=== PATIENT | male | born 1980 | race Caucasian/White ===

== ENCOUNTER → 2016-03-09 | Outpatient (CLI) | payer OTHER ==
--- NOTE | 2016-03-10 09:13 | MR ---
EXAMINATION TYPE: MR lumbar spine wo con DATE OF EXAM: 03/09/2016 2:25 PM COMPARISON: 09/29/2012 HISTORY: Prolapsed lumbar intervertebral disc, Disc displacement, Pain TECHNIQUE: Multiplanar, multisequence images of the lumbar spine were acquired. L1-L2: Normal disc appearance without desiccation. No herniation, protrusion or disc bulging. No ca nal stenosis is present. Foramina are patent bilaterally. L2-L3: Normal disc appearance without desiccation. No herniation, protrusion or disc bulging. No ca nal stenosis is present. Foramina are patent bilaterally. L3-L4: Loss of disc signal and mild loss of disc space. Neural foramina are patent. Mild central disc bulging and mild hypertrophic change of the facets. No canal stenosis. L4-L5: Circumferential disc bulging and hypertrophic change of the facets with mild bilateral foramin al encroachment. Moderate degenerative disc disease with discogenic marrow changes. . L5-S1: Discogenic marrow changes with moderate degenerative disc disease. Suggestion of annular tear and left paracentral disc bulging but no canal stenosis. Mild bilateral foraminal encroachment Lumbar segments are intact. No paraspinal masses are identified. Conus medullaris has a normal appe arance. IMPRESSION: Stable left paracentral disc bulging or small protrusion L5-S1. Mild left-sided foraminal encroachmen t. Stable disc bulging L3-L4 and L4-L5. Multilevel degenerative disc disease and facet arthropathy.
== END | disposition home or self-care (01) ==
LOC: RADMRIMAIN 13:36
PROVIDERS: ATTEND Family Medicine
DX: M51.27 Other intervertebral disc displacement, lumbosacral region (principal); M51.36 Other intervertebral disc degeneration, lumbar region; M46.96 Unspecified inflammatory spondylopathy, lumbar region
CPT/HCPCS: 72148

== ENCOUNTER → 2018-04-12 | Outpatient (CLI) | payer OTHER ==
--- NOTE | 2018-04-12 11:33 | US ---
EXAMINATION TYPE: US thyroid st tissue head/neck DATE OF EXAM: 04/12/2018 COMPARISON: US 2017 CLINICAL HISTORY: E04.1 Thyroid Nodule. Follow up thyroid nodules GLAND SIZE: Right Lobe: 5.0 x 1.7 x 1.7 cm Overall Parenchyma: heterogenous Left Lobe: 4.9 x 1.5 x 1.7 cm Overall Parenchyma: heterogeneous Isthmus Thickness: 0.4 cm NODULES RIGHT: # of nodules measured on right: 0 LEFT: # of nodules measured on left: 2 1. 0.8 X 0.7 x 0.8 cm isoechoic solid nodule at the lower pole with poorly defined margins. This no dule is wider than tall and shows intranodular vascularity. Prior size: 0.8 x 0.7 x 0.9 cm 2. 0.3 X 0.2 x 0.3 cm hypoechoic cystic nodule at the lower pole with well-defined margins. This nod ule is wider than tall and shows no intranodular vascularity. Prior size: 0.3 x 0.2 x 0.3 cm ISTHMUS: # of nodules measured in the isthmus: 0 Bilateral neck scanned, no evidence of lymphadenopathy. IMPRESSION: Mildly heterogeneous gland with left lobe nodules described above.
== END ==
LOC: RADUSWWP 10:48
PROVIDERS: ATTEND Family Medicine
DX: E04.2 Nontoxic multinodular goiter (principal)
CPT/HCPCS: 76536

== ENCOUNTER → 2020-05-28 | Outpatient (CLI) | payer OTHER ==
--- NOTE | 2020-05-28 21:44 | MR ---
EXAMINATION TYPE: MR lspine/sacrum wo con DATE OF EXAM: 05/28/2020 COMPARISON: 09/29/2012 HISTORY: LBP, LLE radiculopathy, prior surgery 2017 CONTRAST: 0 mL intravenous Gadavist. TECHNIQUE: Multiplanar, multisequence images of the lumbar spine were acquired. FINDINGS: L5-S1: There is a left paracentral moderate-sized disc herniation into the epidural space. This has c ontact with the distal thecal sac. Laminectomy has been performed. This has contact with the exiting S1 nerve root on the left. This may be recurrent and extending superior to the L5 vertebral level. N o spinal canal stenosis. No foraminal stenosis. L4-L5: Disc bulge is anterior thecal sac flattening. No AP spinal canal stenosis is present No forami nal stenosis. . L3-L4: No significant disc bulge or disc herniation. No spinal canal stenosis. No foraminal stenosi s. Disc desiccation is present. L2-L3: No significant disc bulge or disc herniation. No spinal canal stenosis. No foraminal stenosi s. L1-L2: No significant disc bulge or disc herniation. No spinal canal stenosis. No foraminal stenosi s. T12-L1: No significant disc bulge or disc herniation. No spinal canal stenosis. No foraminal stenos is. Sacrum: Sagittal views of the sacrum are obtained. The sacral canal is patent. Coccyx as visualized a ppears normal. Presacral space is unremarkable. No acute fractures are evident. Foramen appear patent . Sacroiliac joints are normal. IMPRESSION: 1. Appears to be recurrent left paracentral disc herniation at L5-S1 at the location of a previous di sc herniation. This appears similar to prior study in size, but on this examination has extended supe rior to the L5 level which is a change from comparison. This has contact with the left S1 nerve root. Correlate with radicular symptoms. 2. Mild disc bulging L4-5 with anterior thecal sac flattening. Some interval mild loss of disc height is evident. 3. Disc desiccation L3-4 through L5-S1. 4. Sacrum as visualized is unremarkable. There
== END | disposition home or self-care (01) ==
LOC: RADMRIMAIN 17:59
PROVIDERS: ATTEND Nurse Practitioner Adult Health
DX: M51.17 Intervertebral disc disorders with radiculopathy, lumbosacral region (principal); M51.16 Intervertebral disc disorders with radiculopathy, lumbar region; Z98.890 Other specified postprocedural states
CPT/HCPCS: 72148; 72195

== ENCOUNTER → 2022-03-22 | Outpatient (CLI) | payer OTHER ==
[2022-03-22 08:54] VITALS: BP 150/91; PULSE 68; RESP 18; TEMP 97.7
--- NOTE | 2022-03-22 15:21 | P.PAINPG ---
PQRS Measure Charge Sheet Comment: HISTORY OF PRESENT ILLNESS: 41 yr old male as a referral from [facility] presents today w severe and chronic LBP secondary to post laminectomy syndrome, disc bulges and facet arthropathy without myelopathy for evaluation. Pt states pain level is at 8 /10 in intensity, constant, localized in the L lower lumbar spine, burning, achy in character w shooting pain towards the LLE. Pain is provoked by bending, lifting. Pain is alleviated by chiropractic treatments monthly, heat, ice, meds (Celebrex, Ibu 800mg), topicals, sitting, repositioning and rest. PMH: No Reported History PSH: Nephrolithiasis SH: Daily tobacco use, Rare ETOH use, No illicit drug use. 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 FH: Non contributory All: See list Meds: See list REVIEW OF ORGAN SYSTEMS: CONSTITUTIONAL: No fevers or chills. No recent weight loss. NEUROLOGICAL: + numbness and tingling along the distal extremities. No seizure disorders or headaches. MUSCULOSKELETAL: + pain PSYCHIATRIC: Denies current depression or suicidal thought s. Physical Examinations : Constitutional : Cooperative , not in acute distress . Neurologic : Cranial nerve II to XII intact. No focal neurological deficits. Psychiatric : alert & oriented x 3. Matching mood & appropriate affect. Judgment & insight intact. Musculoskeletal : Cervical Spine Motor strength in the deltoid and biceps: Normal right side. Normal Left side Motor strength biceps and the wrist extensors: Normal right side . Normal left side Motor strength in the triceps muscle: Normal right side. Normal left side Deep tendon reflexes: Normal at the biceps. Normal at Brachioradialis. Normal at triceps Vertebral body tenderness to deep palpation over Cervical facet loading test: positive bilaterally Spurling test: positive bilaterally Neck distraction test: positive bilaterally Abdoulaye sign: positive bilaterally Lumbar spine Motor strength lower extremities ,thigh and legs 5/5 Right side , 5/5 Left side Deep tendon reflexes : Normal Knee Jerk. Normal Ankle Jerk Vertebral body tenderness over L4 Lumbar facet Loading Test: positive Right / positive Left Range of motion of the lumbar spine Flexion 30 degrees, extension 10 degrees Straight Leg Raise test: Left/ Right positive at degree Steven test: positive right / positive left. Severe tenderness over the Sacroiliac joint on the Right / Left sides Gaenslen test: positive bilaterally Seated flexion test: positive bilaterally. Sacral spine : Severe tenderness over the Sacroiliac joint: right side / left side Range of motion: Flexion of the lumbar spine <60 degrees Range of motion: Extension of the lumbar spine <20 degrees Gaenslen's Test positive Horace's Test positive Steven test: positive right side / left side Thigh Thrust Test Sacral Thrust Test Imaging: MRI without contrast of the lumbar spine and sacrum 05/28/20 reviewed Assessment/ Plan : Lumbar post laminectomy syndrome Recommendation of L paramedian L4-L5 SALLIE. May need a series of injections, up to 3 within a 6 mo period, for optimal pain relief. Risks, benefits of procedure discussed and patient verbalized understanding. Admits to aspirin or anti- coagulant use or medical history of diabetes. Protocol for discontinuation/ continuation of medications annalee procedure discussed. All questions answered. I have spent greater than 30 minutes on patient care today. Dr Padgett was available by phone for the evaluation of this patient. The time was used to review the medical records including relevant urine studies and Prescription history (MAPs), review of the available imaging, evaluation and examination of the patient, coordination of care with the medical staff and if applicable referring physicians, as well as creation of the medical record PQRS Narrative: Smoking Status Current every day smoker Home Medications: Ambulatory Orders predniSONE [Deltasone] 40 mg PO DAILY 5 Days tab 10/17/15 Controlled Substance Measures - Controlled Substance Measures Is patient prescribed a controlled substance at discharge?: No
== END ==
LOC: PNWHC3 07:58
PROVIDERS: ATTEND Specialist
DX: M96.1 Postlaminectomy syndrome, not elsewhere classified (principal); Z88.2 Allergy status to sulfonamides; Z91.030 Bee allergy status; F17.200 Nicotine dependence, unspecified, uncomplicated
CPT/HCPCS: 99211

== ENCOUNTER → 2022-11-25 | Outpatient (CLI) | payer OTHER ==
[2022-11-25 09:14] VITALS: BP 157/76; PULSE 60; RESP 16; TEMP 97.8
--- NOTE | 2022-11-25 12:32 | P.PAINPG ---
PQRS Measure Charge Sheet Comment: HISTORY OF PRESENT ILLNESS: 41 yr old male presents today w severe and chronic LBP secondary to post laminectomy syndrome, disc bulges and facet arthropathy without myelopathy for evaluation s/p SALLIE L4-L5. Pt states she experienced 80 % pain relief x 7-8 mo s/p procedure. Pt states pain level is at 7 /10 in intensity, constant, localized in the L lower lumbar spine, burning, achy in character w shooting pain towards the LLE. Pain is provoked by bending, lifting. Pain is alleviated by chiropractic treatments monthly in May 2022, massage therapy semi weekly from his / [place] at home x 8 mo till present, heat, ice, meds (Celebrex, Ibu 800mg), topicals, sitting, repositioning and rest. He got no relief w PT 8 yrs ago. Oswestry axial pain score of 26. Interventional procedures include SALLIE L4-L5 (Apr 2022) Medications include Celebrex, Ibu REVIEW OF ORGAN SYSTEMS: CONSTITUTIONAL: No fevers or chills. No recent weight loss. NEUROLOGICAL: + numbness and tingling along the distal extremities. No seizure disorders or headaches. MUSCULOSKELETAL: + pain PSYCHIATRIC: Denies current depression or suicidal thoughts. Physical Examinations : Constitutional : Cooperative , not in acute distress . Neurologic : Cranial nerve II to XII intact. No focal neurological deficits. Psychiatric : alert & oriented x 3. Matching mood & appropriate affect. Judgment & insight intact. Musculoskeletal : Cervical Spine Motor strength in the deltoid and biceps: Normal right side. Normal Left side Motor strength biceps and the wrist extensors: Normal right side . Normal left side Motor strength in the triceps muscle: Normal right side. Normal left side Deep tendon reflexes: Normal at the biceps. Normal at Brachioradialis. Normal at triceps Vertebral body tenderness to deep palpation over Cervical facet loading test: positive bilaterally Spurling test: positive bilaterally Neck distraction test: positive bilaterally Abdoulaye sign: positive bilaterally Lumbar spine Motor strength lower extremities ,thigh and legs 5/5 Right side , 5/5 Left side Deep tendon reflexes : Normal Knee Jerk. Normal Ankle Jerk Vertebral body tenderness over L4 Lumbar facet Loading Test: positive Right / positive Left Range of motion of the lumbar spine Flexion 30 degrees, extension 10 degrees Straight Leg Raise test: Left/ Right positive at 20 degrees Steven test: positive right / positive left. Severe tenderness over the Sacroiliac joint on the Right / Left sides Gaenslen test: positive bilaterally Seated flexion test: positive bilaterally. Sacral spine : Severe tenderness over the Sacroiliac joint: right side / left side Range of motion: Flexion of the lumbar spine <60 degrees Range of motion: Extension of the lumbar spine <20 degrees Gaenslen's Test positive Horace's Test positive Steven test: positive right side / left side Thigh Thrust Test Sacral Thrust Test Imaging: MRI without contrast of the lumbar spine and sacrum 05/28/20 reviewed Assessment/ Plan : Lumbar post laminectomy syndrome Recommendation of L paramedian SALLIE L4-L5 #2. May need a series of injections, up to 3 within a 6 mo period, for optimal pain relief. Risks, benefits of procedure discussed and patient verbalized understanding. Admits to aspirin or anti- coagulant use or medical history of diabetes. Protocol for discontinuation/ continuation of medications annalee procedure discussed. All questions answered. I have spent greater than 30 minutes on patient care today. Dr Padgett was available by phone for the evaluation of this patient. The time was used to review the medical records including relevant urine studies and Prescription history (MAPs), review of the available imaging, evaluation and examination of the patient, coordination of care with the medical staff and if applicable referring physicians, as well as creation of the medical record PQRS Narrative: Smoking Status Current every day smoker Hx Alcohol Use (MH) Yes: "FEW A WEEK" Home Medications: Ambulatory Orders Celecoxib [CeleBREX] 200 mg PO DAILY 04/19/22 Controlled Substance Measures - Controlled Substance Measures Is patient prescribed a controlled substance at discharge?: No
== END ==
LOC: PNWHC3 07:50
PROVIDERS: ATTEND Specialist
DX: M96.1 Postlaminectomy syndrome, not elsewhere classified (principal); F17.200 Nicotine dependence, unspecified, uncomplicated; Z88.2 Allergy status to sulfonamides; Z91.030 Bee allergy status
CPT/HCPCS: 99211

== ENCOUNTER 2022-12-09 12:35 | Day surgery (SDC) | payer OTHER ==
[~2022-12-09 12:35] MED LIST: LACTATED RINGERS 1,000 ML IV SCH
[2022-12-09 12:59] VITALS: RESP 18; TEMP 98.3
[2022-12-09] MEDS ORDERED: ROPIVACAINE 5MG/ML 20ML VIAL ONE (13:48)
[2022-12-09] MEDS ORDERED: IOPAMIDOL M200 10 ML VIAL ONE (13:48)
[2022-12-09] MEDS ORDERED: TRIAMCINOLONE ACETONIDE 40 MG/ML 1 ML VIAL ONE (13:48)
--- NOTE | 2022-12-09 14:05 | P.PCN ---
Date of Procedure: 12/09/22 Surgeon: Jonny Lee Pathology: none sent Condition: stable Disposition: PACU Description of Procedure: PREOPERATIVE DIAGNOSIS: 1-Lumbar postlaminectomy pain syndrome 2- Lumber Degenerative Disc Diseases. POSTOPERATIVE DIAGNOSIS: 1-Lumbar postlaminectomy pain syndrome 2-Lumbar Degenerative Disc Diseases PROCEDURE 1. Lumbar epidural steroid injection under fluoroscopic guidance at the L5-S1 l evel in the left paramedian approach. 2. Lumbar epidurogram. ANESTHESIA: Local only with 1% lidocaine EBL: Minimal PROCEDURE INDICATION: The patient with low back pain and radiculitis symptoms un responsive to conservative treatment. Fluoroscopy was used to optimize visualization of the needle placement and to maximize safety. PROCEDURE DESCRIPTION / TECHNIQUE: The patient was seen and identified in the preoperative area. Risks, benefits, complications including but not limited to infections ,bleeding ,allergic reaction to the medications ,nerve damage and not complete pain relief , and alternatives were discussed with the patient. The patient agreed to proceed with the procedure and signed the consent. IV was started, and vital signs were stable. Due to previous surgery at the L4 5 level I decided to do the procedure at the L5-S1 level. Patient was taken to the OR and time out was completed. The patient was placed in the prone position on procedure table and a pillow was placed under the abdomen to reduce lumbar lordosis. The lumbosacral area was prepped and draped in the usual sterile fashion with ChloraPrep.Patient was closely monitored during the procedure. Conscious sedation was used during the procedure to decrease patients anxiety. Vital signs were monitered during the entire procedure. Using anterior-posterior fluoroscopy, the L4-5 interlaminar space was identified and the skin over this site was marked and then infiltrated with 1% lidocaine subcutaneously. Subsequently, a 20-gauge Tuohy epidural needle was inserted and advanced toward the epidural space using the Loss of resistance to air technique and guided by AP and lateral fluoroscopy. The correct needle position in the epidural space was verified with the injection of 1 mL of the water soluble contrast dye Omnipaque 180 contrast and observing an excellent epidurogram with the epidural spread of the dye, after negative aspiration for blood and CSF and in the absence of paresthesias. Again after negative aspiration, a 8 ml mixture containing 80 mg of Kenalog and 5 ml of preservative free Normal Saline, and 2 ml of preservative free Ropivacaine 0.5% solution was injected and a washout of epidurogram was seen. Needle was withdrawn intact, skin was cleansed, and bandages were applied. patient tolerated procedure well and was transferred to PACU in stable condition.A copy of the needle placement picture was saved to the fluoroscopy machine. Due to previous surgery at the L4-5 level it would be preferable to do a caudal epidural steroid injection next time instead of LESI. COMPLICATIONS: None DISPOSITION / PLANS: The patient was placed in a supine position and transferred to the recovery area in a stable condition for observation. There was no evidence of lower extremity motor or sensory deficit after the procedure. Patient was discharged from the recovery room after meeting discharge criteria. Home discharge instructions were given to the patient by the staff. The patient was reexamined prior to discharge. The patient will schedule a follow up in the clinic in 2-4 weeks.
[2022-12-09 16:25] VITALS: BP 151/85; PULSE 63
--- NOTE | 2022-12-09 19:24 | FL ---
EXAMINATION TYPE: FL guided pain mgmt statistic DATE OF EXAM: 12/09/2022 FLUOROSCOPY Lumbar epidural steroid injection 9 sec Fluoro time 0.64581 mGycm2 DAP 2 views
== END 2022-12-09 16:10 | disposition home or self-care (01) ==
LOC: ORPAIN 12:35
PROVIDERS: ATTEND Anesthesiology
DX: M51.16 Intervertebral disc disorders with radiculopathy, lumbar region (principal); M96.1 Postlaminectomy syndrome, not elsewhere classified; Z88.2 Allergy status to sulfonamides
CPT/HCPCS: 62323; J3301; Q9966; J2795

== ENCOUNTER → 2023-04-07 | Outpatient (CLI) | payer OTHER ==
--- NOTE | 2023-04-07 14:26 | P.PAINPG ---
PQRS Measure Charge Sheet Comment: HISTORY OF PRESENT ILLNESS: A 42 yr old male presents today w severe and chronic LBP secondary to post laminectomy syndrome, disc bulges and facet arthropathy without myelopathy for evaluation s/p SALLIE L5-S1. Pt states he experienced 60 % pain relief x 2 mo s/p procedure. Pt states pain level is at 8 /10 in intensity, constant, localized in the L lower lumbar spine, predominantly axial, burning, achy in character w occasional shooting pain towards the LLE. Pain is provoked by bending, lifting. Pain is alleviated by chiropractic treatments monthly in May 2022, massage therapy semi weekly from his / [place] at home x 8 mo till present, heat, ice, meds, topicals, sitting, repositioning and rest. He got no relief w PT 8 yrs ago. Oswestry axial pain score of 26. Interventional procedures include SALLIE L4-L5 (Apr 2022), SALLIE L5-S1 x1 (Dec 2022) Medications include Celebrex, Ibu REVIEW OF ORGAN SYSTEMS: CONSTITUTIONAL: No fevers or chills. No recent weight loss. NEUROLOGICAL: + numbness and tingling along the distal extremities. No seizure disorders or headaches. MUSCULOSKELETAL: + pain PSYCHIATRIC: Denies current depression or suicidal thoughts. Physical Examinations : Constitutional : Cooperative , not in acute distress . Neurologic : Cranial nerve II to XII intact. No focal neurological deficits. Psychiatric : alert & oriented x 3. Matching mood & appropriate affect. Judgment & insight intact. Musculoskeletal : Cervical Spine Motor strength in the deltoid and biceps: Normal right side. Normal Left side Motor strength biceps and the wrist extensors: Normal right side . Normal left side Motor strength in the triceps muscle: Normal right side. Normal left side Deep tendon reflexes: Normal at the biceps. Normal at Brachioradialis. Normal at triceps Vertebral body tenderness to deep palpation over Cervical facet loading test: positive bilaterally Spurling test: positive bilaterally Neck distraction test: positive bilaterally Abdoulaye sign: positive bilaterally Lumbar spine Motor strength lower extremities ,thigh and legs 5/5 Right side , 5/5 Left side Deep tendon reflexes : Normal Knee Jerk. Normal Ankle Jerk Vertebral body tenderness over L4 Lumbar facet Loading Test: positive Right / positive Left Range of motion of the lumbar spine Flexion 30 degrees, extension 10 degrees Straight Leg Raise test: Left/ Right positive at 20 degrees Steven test: positive right / positive left. Severe tenderness over the Sacroiliac joint on the Right / Left sides Gaenslen test: positive bilaterally Seated flexion test: positive bilaterally. Sacral spine : Severe tenderness over the Sacroiliac joint: right side / left side Range of motion: Flexion of the lumbar spine <60 degrees Range of motion: Extension of the lumbar spine <20 degrees Gaenslen's Test positive Horace's Test positive Steven test: positive right side / left side Thigh Thrust Test Sacral Thrust Test Imaging: MRI without contrast of the lumbar spine and sacrum 05/28/20 reviewed Assessment/ Plan : Lumbar post laminectomy syndrome Recommendation of L TFESI L4-L5 #1. May need a series of injections, up to 3 within a 6 mo period, for optimal pain relief. Risks, benefits of procedure discussed and patient verbalized understanding. Admits to aspirin or anti- coagulant use or medical history of diabetes. Protocol for discontinuation/ continuation of medications annalee procedure discussed. All questions answered. I have spent greater than 30 minutes on patient care today. Dr Padgett was available by phone for the evaluation of this patient. The time was used to review the medical records including relevant urine studies and Prescription history (MAPs), review of the available imaging, evaluation and examination of the patient, coordination of care with the medical staff and if applicable referring physicians, as well as creation of the medical record PQRS Narrative: Smoking Status Current every day smoker Hx Alcohol Use (MH) Yes: "FEW A WEEK" Home Medications: Ambulatory Orders Celecoxib [CeleBREX] 200 mg PO QAM 04/19/22 Testosterone Cypionate [Depo-Testosterone] 200 mg SQ Q14D 12/06/22 diazePAM [Valium] 5 mg PO DAILY PRN 1 Days #2 tab 04/07/23 Controlled Substance Measures - Controlled Substance Measures Is patient prescribed a controlled substance at discharge?: Yes When asked, does pt state using other controlled substances?: Yes If prescribed controlled substance>3 days was MAPS reviewed?: Prescribed <3 Days
[2023-04-07 14:43] VITALS: BP 162/97; PULSE 57; RESP 14
== END ==
LOC: PNWHC3 13:50
PROVIDERS: ATTEND Specialist
DX: M96.1 Postlaminectomy syndrome, not elsewhere classified (principal); F17.200 Nicotine dependence, unspecified, uncomplicated; Z88.2 Allergy status to sulfonamides
CPT/HCPCS: 99211

== ENCOUNTER 2023-04-14 08:03 | Day surgery (SDC) | payer OTHER ==
[2023-04-14 08:54] VITALS: TEMP 97
[2023-04-14] MEDS ORDERED: methylPREDNISolone ACETATE 80 MG/ML 1 ML VIAL ONE (09:01)
[2023-04-14] MEDS ORDERED: IOPAMIDOL M200 10 ML VIAL ONE (09:01)
--- NOTE | 2023-04-14 09:10 | P.PCN ---
Date of Procedure: 04/14/23 Procedure(s) Performed: PREOPERATIVE DIAGNOSIS: 1-Lumbar radiculopathy . 2-lumbar degenerative disc disease. 3. failed Back surgery syndrome lumbar area POSTOPERATIVE DIAGNOSIS: 1-lumbar radiculopathy. 2-lumbar degenerative disc disease. 3-failed back surgery syndrome lumbar area PROCEDURE 1. Transforaminal epidural steroid injection under fluoroscopic guidance at left L4-5 level. (Fluoroscopy images stored on file in the radiology Department ) 2. Lumbar epidurogram . ANESTHESIA: Local with 1% lidocaine 3 ml. EBL: Minimal PROCEDURE INDICATION: The patient with low back pain and radiculopathy symptoms unresponsive to conservative treatment. PROCEDURE DESCRIPTION / TECHNIQUE: The patient was seen and identified in the preoperative area. Risks, benefits, complications, and alternatives were discussed with the patient. The patient agreed to proceed with the procedure and signed the consent, and vital signs were stable. Patient was taken to the OR and time out was completed. The patient was placed in the prone position on procedure table and a pillow was placed under the abdomen to reduce lumbar lordosis. The lumbosacral area was prepped and draped in the usual sterile fashion. Critical pause was taken. Vital signs were closely monitored during the procedure. Using oblique fluoroscopy, the chin of the `Kali[place]ody dog at left L4-5 level was identified, and the skin and deeper tissues just below was localized with 1% lidocaine. Subsequently, a 22-gauge 3.5-inch spinal needle was advanced under a tunneled view fluoroscopic guidance just underneath the chin of the `Donnyy dog at the left L4-5 Under lateral fluoroscopy, the needle was then advanced to the posterior border of the interforaminal space. After negative aspiration of CSF and blood and with no paresthesias, 1 mL Isovue 200 contrast dye was injected excellent epidurogram and outlining of the nerve root Subsequently, 3 mL of block solution containing 80 mg Depo-Medrol and 2 mL of 0.9% normal saline PF was injected. Needle was removed . At the end of the procedure, skin was cleansed, and bandages were applied. COMPLICATIONS:none DISPOSITION / PLANS: The patient was placed in a supine position and transferred to the recovery area in a stable condition for observation. There was no evidence of lower extremity motor or sensory deficit after the procedure. Patient was discharged from the recovery room after meeting discharge criteria. Home discharge instructions were given to the patient by the staff. The patient was reexamined prior to discharge.
--- NOTE | 2023-04-14 09:19 | FL ---
EXAMINATION TYPE: FL guided pain mgmt statistic Intraoperative/procedural fluoroscopic services were provided. Total fluoroscopy time is 4.7 seconds with a total of 1 submitted images to PACS. Please se e the operative/procedural note for further details. DAP: [id number] [employer]Gym[employer]
[2023-04-14 09:28] VITALS: BP 164/83; PULSE 67; RESP 18
== END 2023-04-14 09:31 | disposition home or self-care (01) ==
LOC: ORPAIN 08:03
PROVIDERS: ATTEND Specialist
DX: M96.1 Postlaminectomy syndrome, not elsewhere classified (principal); M51.16 Intervertebral disc disorders with radiculopathy, lumbar region; Z88.2 Allergy status to sulfonamides
CPT/HCPCS: 64483; J1040; Q9966

== ENCOUNTER 2023-12-14 09:28 | Day surgery (SDC) | payer OTHER ==
[2023-12-13 11:38] VITALS: BMI 33.0
[2023-12-14 10:48] VITALS: TEMP 97.5
[2023-12-14] MEDS: LIDOCAINE 1% (10MG/ML) FOR IV START INTRADERMA PRN (10:48)
[2023-12-14] MEDS: IV FLUID CONTINUATION 1,000 ML IV ONE ×2 (10:48→11:29)
[2023-12-14] MEDS: LACTATED RINGERS 1,000 ML IV SCH (10:48)
[2023-12-14] MEDS ORDERED: PROPOFOL 10 MG/ML 20 ML VIAL IV ONE (11:36)
--- NOTE | 2023-12-14 11:50 | P.PCN ---
Date of Procedure: 12/14/23 Procedure(s) Performed: BRIEF HISTORY: Patient is a 43-year-old pleasant white male scheduled for an elective colonoscopy as a part of screening for colon cancer/positive Cologuard. PROCEDURE PERFORMED: Colonoscopy. PREOPERATIVE DIAGNOSIS: Screening for colon cancer/positive Cologuard. IV sedation per Anesthesia. PROCEDURE: After informed consent was obtained, the patient, was brought into the endoscopy unit. IV sedation was administered by Anesthesia under continuous monitoring. Digital rectal examination was normal. Initially the Olympus CF-160 flexible video colonoscope was then inserted in the rectum, gradually advanced into the cecum without any difficulty. Careful examination was performed as the scope was gradually being withdrawn. Ileocecal valve and the appendiceal orifice were visualized and appeared normal. Prep was excellent. Mucosa of the cecum, ascending colon, transverse colon, descending colon, sigmoid colon, and rectum appeared normal. Retroflexion was performed in the rectum and no lesions were seen. The patient tolerated the procedure well. IMPRESSION: Normal-appearing colon from rectum to cecum no evidence of colorectal neoplasia. RECOMMENDATIONS: Findings of this examination were discussed with the patient as well as his family. He was advised to have repeat screening colonoscopy in 10 years..
[2023-12-14 12:36] VITALS: BP 140/77; PULSE 71; RESP 16
== END 2023-12-14 12:48 | disposition home or self-care (01) ==
LOC: ORWHC2ENDO 09:28
PROVIDERS: ATTEND Internal Medicine Gastroenterology
CPT/HCPCS: 45378

== ENCOUNTER → 2024-03-28 | Outpatient (CLI) | payer OTHER ==
[2024-03-28 10:25] VITALS: BP 144/91; PULSE 84; RESP 19; TEMP 97.3
--- NOTE | 2024-03-28 16:39 | P.PAINPG ---
Objective - Vital Signs Vital signs: Intake & Output 03/27/24 03/28/24 03/28/24 18:59 06:59 18:59 Weight 117.934 kg PQRS Measure Charge Sheet Comment: HISTORY OF PRESENT ILLNESS: A 42 yr old male presents today w severe and chronic LBP secondary to post laminectomy syndrome, disc bulges and facet arthropathy without myelopathy for evaluation s/p L TFESI L4-L5 #1. Pt states he experienced 60 % pain relief x 6 mo s/p procedure. Pt states pain level is at 8 /10 in intensity, constant, localized in the L lower lumbar spine, predominantly axial, burning, achy in character w occasional shooting pain towards the LLE. Pain is provoked by bending, lifting. Pain is alleviated by chiropractic treatments monthly in May 2022, massage therapy semi weekly from his / masseuse at home x 8 mo till present, heat, ice, meds, topicals, sitting, repositioning and rest. He got no relief w PT 8 yrs ago. Interventional procedures include SALLIE L4-L5 (Apr 2022), SALLIE L5-S1 x1 (Dec 2022), L TFESI L4-L5 x1 (Apr 2023) Medications include Celebrex, Ibu REVIEW OF ORGAN SYSTEMS: CONSTITUTIONAL: No fevers or chills. No recent weight loss. NEUROLOGICAL: + numbness and tingling along the distal extremities. No seizure disorders or headaches. MUSCULOSKELETAL: + pain PSYCHIATRIC: Denies current depression or suicidal thoughts. Physical Examinations : Constitutional : Cooperative , not in acute distress . Neurologic : Cranial nerve II to XII intact. No focal neurological deficits. Psychiatric : alert & oriented x 3. Matching mood & appropriate affect. Judgment & insight intact. Musculoskeletal : Cervical Spine Motor strength in the deltoid and biceps: Normal right side. Normal Left side Motor strength biceps and the wrist extensors: Normal right side . Normal left side Motor strength in the triceps muscle: Normal right side. Normal left side Deep tendon reflexes: Normal at the biceps. Normal at Brachioradialis. Normal at triceps Vertebral body tenderness to deep palpation over Cervical facet loading test: positive bilaterally Spurling test: positive bilaterally Neck distraction test: positive bilaterally Abdoluaye sign: positive bilaterally Lumbar spine Motor strength lower extremities ,thigh and legs 5/5 Right side , 5/5 Left side Deep tendon reflexes : Normal Knee Jerk. Normal Ankle Jerk Vertebral body tenderness over L5 Lumbar facet Loading Test: positive Right / positive Left Range of motion of the lumbar spine Flexion 30 degrees, extension 10 degrees Straight Leg Raise test: Left/ Right positive at < 30 degrees Steven test: positive right / positive left. Severe tenderness over the Sacroiliac joint on the Right / Left sides Gaenslen test: positive bilaterally Seated flexion test: positive bilaterally. Sacral spine : Severe tenderness over the Sacroiliac joint: right side / left side Range of motion: Flexion of the lumbar spine <60 degrees Range of motion: Extension of the lumbar spine <20 degrees Gaenslen's Test positive Horace's Test positive Steven test: positive right side / left side Thigh Thrust Test Sacral Thrust Test Imaging: MRI without contrast of the lumbar spine and sacrum 05/28/20 reviewed Assessment/ Plan : Lumbar post laminectomy syndrome Recommendation of L TFESI L4-L5/ L5-S1 #1. Risks, benefits of procedure discussed and patient verbalized understanding. Admits to aspirin or anti- coagulant use or medical history of diabetes. Protocol for discontinuation/ continuation of medications annalee procedure discussed. All questions answered. I have spent greater than 30 minutes on patient care today. Dr Padgett was available by phone for the evaluation of this patient. The time was used to review the medical records including relevant urine studies and Prescription history (MAPs), review of the available imaging, evaluation and examination of the patient, coordination of care with the medical staff and if applicable referring physicians, as well as creation of the medical record PQRS Narrative: Smoking Status Current every day smoker Hx Alcohol Use (MH) Yes: "FEW A WEEK" Home Medications: Ambulatory Orders Testosterone Cypionate [Depo-Testosterone] 100 mg IM WEEKLY 12/14/23 Controlled Substance Measures - Controlled Substance Measures Is patient prescribed a controlled substance at discharge?: No
== END ==
LOC: PNWHC3 09:51
PROVIDERS: ATTEND Specialist
DX: M96.1 Postlaminectomy syndrome, not elsewhere classified (principal); F17.210 Nicotine dependence, cigarettes, uncomplicated; Z88.2 Allergy status to sulfonamides
CPT/HCPCS: 99211